=== PATIENT | male | born 1965 | race Caucasian/White ===

== ENCOUNTER 2017-11-19 17:12 | Emergency (ER) | payer SELFPAY ==
[~2017-11-19] VITALS: Ht 167.6 cm; Wt 59.5 kg
[2017-11-19 17:14] VITALS: BP 139/68; PULSE 88; RESP 16; TEMP 98; O2SAT 98
[2017-11-19] MEDS ORDERED: CEPH-460 PO (17:33)
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
[2017-11-19 18:25] VITALS: BP 123/65; PULSE 85; RESP 18; O2SAT 98
[2017-11-19] MEDS ORDERED: BACT800T5 PO (19:17)
[2017-11-19] MEDS ORDERED: BACI500O9 TOPICAL (19:17)
== END 2017-11-19 19:29 | disposition home or self-care (01) ==
LOC: PHED 17:12
DX: S01.311D Laceration without foreign body of right ear, subsequent encounter (principal); X58.XXXD Exposure to other specified factors, subsequent encounter; H92.01 Otalgia, right ear; Z48.02 Encounter for removal of sutures; Z72.0 Tobacco use
CPT/HCPCS: 99283